=== PATIENT | female | born 1990 | race Caucasian/White ===

== ENCOUNTER 2017-01-16 17:59 | Emergency (ER) | payer OTHER ==
[~2017-01-16] VITALS: Ht 160 cm; Wt 71.0 kg
[~2017-01-16 17:59] MED LIST: TYLOTC500 PO; VNTHFA/IN INH
[2017-01-16 18:17] VITALS: BP 124/76; PULSE 102; TEMP 36.9; O2SAT 99; Ht 160 cm; Wt 71.0 kg
[2017-01-16] MEDS ORDERED: PENI-82 PO (18:36)
[2017-01-16] MEDS ORDERED: HYDR-5688 PO (18:36)
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
== END 2017-01-16 18:45 | disposition home or self-care (01) ==
LOC: C.EDB 18:01 → C.EDD 18:45
DX: K08.89 Other specified disorders of teeth and supporting structures (principal); J45.909 Unspecified asthma, uncomplicated; F17.200 Nicotine dependence, unspecified, uncomplicated; Z90.710 Acquired absence of both cervix and uterus

== ENCOUNTER 2019-04-07 22:49 | Inpatient (IN) ==
--- OUTSIDE RECORDS SUMMARY | 2019-04-07 22:51 | External Medical Summary | Continuity of Care Document ---
:1990 Author Name Corby Brenner Address Unavailable Unavailable , Care Team Providers Name Role Phone [email or web address] M.[email or web address]. Unavailable Unavailable Problems Active medical history not documented Allergies and Adverse Reactions Darvocet-N 100 TABS (Allergy) Reaction: Nausea, Vomiting Ibuprofen TABS (Allergy) Reaction: Nause a, Rash Morphine Derivatives (Allergy) Reaction: Hives Medications Medications not documented Procedures Procedures not documented Immunizations Tenivac 5-2 LFU Intramuscular Injectable On: 16-Nov-2003 HPV (Gardasil) On: 26-Feb-2007 Plan of Treatment Planned Observations Planned Goals not documented Results No Known Results Results not documented Encounters Appointment; Christel Wolfe DO 14-Mar-2018 14:20 Encounter Diagnosis: Problem not documented
[2019-04-07 23:44] LABS: Base Excess Cord Arterial Bld -4.2 mEq/L (-9-1.8); CO2 Cord Arterial Blood 57 mmHg (39.1-73.5); HCO3 Cord Arterial Blood 24 mmol/L (19.7-28.5); PO2 Cord Arterial Blood 16.5 % (4.1-31.7); pH Cord Arterial Blood 7.25 (7.1-7.38)
[2019-04-07 23:49] LABS: Base Excess Cord Venous Blood -3.4 mEq/L (-7.7-1.9); Cord Venous Blood HCO3 22 mmol/L (18.4-26.8); Cord Venous Blood PCO2 42 mmHg (30.4-57.2); Cord Venous Blood PO2 19 mmHg (14.1-43.3); Cord Venous Blood pH 7.34 (7.20-7.44)
[2019-04-07 23:50] LABS: O2 Saturation Cord Venous Bld < 60.0 % (<68)
[2019-04-07] MEDS ORDERED: SUPERCREAM 0.870% 15 GM JAR EXT PRN (23:52)
[2019-04-07] MEDS ORDERED: HYDROCORTISONE ACETATE 25 MG SUPP PR PRN (23:52)
[2019-04-07] MEDS ORDERED: DIPHTHERIA/TETANUS/PERTUSSIS 0.5 ML SYR/VIAL IM ONE (23:52)
[2019-04-07] MEDS ORDERED: OXYTOCIN 10 UNITS/ML VIAL IM ONE (23:52)
[2019-04-07] MEDS ORDERED: BENZOCAINE 20% AER SPR 82.5 GM CAN EXT PRN (23:52)
[2019-04-07] MEDS ORDERED: ACETAMINOPHEN 325 MG TAB ONE (23:53)
[2019-04-08] MEDS: ACETAMINOPHEN 325 MG TAB PO PRN ×2 (00:12→09:05)
[2019-04-08 00:20] LABS: Hemoglobin 12.2 g/dL (12.0-16.0); Mean Corpuscular Volume 85.1 fL (80-100); Mean Platelet Volume 11.3 fL (7.4-10.4); Platelet Count 277 K/uL (130-400); RDW Coefficient of Variation 13.9 % (11.5-14.5); RDW Standard Deviation 42.7 fL (36.4-46.3); Red Blood Count 4.35 M/uL (4.2-5.4)
--- NOTE | 2019-04-08 00:39 | History and Physical Report ---
DATE OF ADMISSION: 04/07/2019 ADMITTING DIAGNOSES: 1. Apparent term in active labor. 2. No care. ADMISSION HISTORY: The patient is a 28-year-old 3, para 1, probable term in active labor, who presents to labor and delivery. The patient states that her contractions began earlier in the evening and increased in intensity. The patient has had no care for this . She found out last July that she was . The patient was not seen by obstetrics nor did she seek any care during this . The patient's other term was in 2012. Apparently that baby was given up for adoption. The patient from her medical records has a history of opioid dependence and had been on Subutex in the past. She also has a history of reactive airways disease which she periodically uses an inhaler for. PAST MEDICAL HISTORY: OBSTETRICS AND GYNECOLOGY: As above. MEDICAL: As above. SURGICAL: History of cholecystectomy. ALLERGIES: CODEINE, IBUPROFEN, NALOXONE AND PROPOXYPHENE. SOCIAL HISTORY: Positive for smoking. FAMILY HISTORY: Noncontributory. REVIEW OF SYSTEMS: As per HPI. ADMISSION PHYSICAL EXAMINATION: GENERAL: Shows a gravid female in active labor. VITAL SIGNS: Blood pressure 126/82. HEENT: Shows poor dentition. NECK: Supple. ABDOMEN: Gravid, vertex. Positive palpable contractions, estimated weight of 6-1/2 pounds. PELVIC: Shows the cervix to be fully dilated with bulging membranes. EXTREMITIES: Shows no deep calf tenderness. IMPRESSION: A 28-year-old 3, para 1, apparently at term in active labor. PLAN: Delivery is imminent for the patient. Pediatrics has been notified. Anticipate vaginal delivery.
--- NOTE | 2019-04-08 00:43 | Delivery Summary ---
DATE OF OPERATION: 04/07/2019 FINDINGS: Viable male with Apgars of 8 and 9. Baby delivered over a midline second-degree laceration. Cord gases, cord blood samples obtained. Placenta delivered spontaneously. Laceration repaired with 4-0 Vicryl under local anesthesia in a routine fashion. Estimated blood loss 300 mL. LABOR NOTE: The patient is a 28-year-old 3, para 1, unknown EDC, who presented to labor and delivery in active labor. The patient states that she found out in July that she was . The patient had no care for this . The patient's previous term was in 2012. The baby was given up for adoption. On admission, the patient was found to be fully dilated with bulging membranes. She had artificial rupture of membranes for light meconium. Over the next 2 contractions, she delivered over a midline second-degree laceration. Cord was clamped and cut. Cord gases, cord blood samples were obtained. Placenta was delivered spontaneously and sent for pathological evaluation. Inspection of the perineum showed a midline second-degree laceration. This was repaired with 4-0 Vicryl after receiving local anesthetic. Estimated blood loss was 300 mL. Sponge and needle count was correct. I attest to the content of the Intraoperative Record and any orders documented therein. Any exception s are noted below.
[2019-04-08] MEDS ORDERED: OXYTOCIN 30 UNITS/500 ML BAG IV PRN (00:45)
[2019-04-08 01:16] LABS: Amphetamines+Metham, Urine Neg (Neg); Barbiturates, Urine Neg (Neg); Benzodiazepine, Urine Neg (Neg); Cocaine, Urine Neg (Neg); MDMA (Ecstacy), Urine Neg (Neg); Methadone, Urine Neg (Neg); Opiate, Urine Neg (Neg); Phencyclidine, Urine Neg (Neg)
[2019-04-08 02:06] LABS: Hepatitis B Surface Antibody Non-Immune
[2019-04-08 02:17] LABS: Rubella IgG Antibody Immune (Immune)
[2019-04-08] MEDS: BUPRENORPHINE HCL 8 MG SUBL SL SCH ×2 (03:03→14:48)
--- NOTE | 2019-04-08 06:40 | Obstetrical Progress Note ---
Date of Service <Andrés Peralta MD - Last Filed: 04/08/19 06:40> April 08, 2019 Assessment & Plan <Andrés Peralta MD - Last Filed: 04/08/19 06:40> (1) Vaginal delivery: Lourdes is a 28yo who presented in labor with unknown gestational age in no care. She is status post normal spontaneous vaginal delivery over a second-degree laceration. 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 career placement services counselor consult placed. - Feels well today. Hungry, hasn't eaten yet. Voiding well, ambulating well. - Pain well controlled with ibuprofen 600mg Q4H PRN + APAP. - Routine post- care - After discharge will have [address] Deluca if baby has not been placed in adoption. (2) No care in current in third trimester: Subjective <Andrés Peralta MD - Last Filed: 04/08/19 06:40> Ambulation: ambulating normally Voiding: no voiding problems Passing Gas:: Yes Diet Tolerance:: regular diet (has not eaten yet, is hungry) Lochia:: Moderate Feeding Type:: bottle feeding Current Pain Level(1-10): 3 Review of Systems Denies fever, chills, sweats Denies shortness of breath, difficulty breathing, chest pain, palpitations, chest pressure. Denies breast pain. Denies dysuria. Endorses some irritation and burning in the vaginal area. Endorses mild headache when waking up this morning, improving. Physical Exam <Andrés Peralta MD - Last Filed: 04/08/19 06:40> General: Alert, oriented. No acute distress. Cardiac: Regular rate and rhythm, no murmurs/rubs/gallops. Respiratory: Clear to auscultation anterior and posteriorly, no wheezes/rales/rhonchi. No increased work of breathing. Symmetrical chest rise. No respiratory distress. Abdomen: Soft, nontender, nondistended. Bowel sounds present. Uterus: Uterine fundus firm, palpable at umbilicus. Lower Extremities: No lower extremity edema or swelling. No deep calf pain. Peg's negative bilaterally. Results & Data <Andrés Peralta MD - Last Filed: 04/08/19 06:40> Vital Signs (Past 12 Hours) Vital Signs Temp Pulse Resp BP 04/08/19 01:31 78 125/86 04/08/19 01:14 71 126/75 04/08/19 00:55 36.4 C L 18 04/08/19 00:11 67 139/89 04/07/19 23:58 68 128/84 04/07/19 23:41 75 132/72 04/07/19 23:25 36.4 C L 81 22 125/79 04/07/19 22:53 81 125/79 <Oliverio Deluca Jr, MD, FACOG - Last Filed: 04/08/19 07:35> Co-Signing Physician Notes Resident Physician Supervision Note: I was present with Dr. Peralta during the history and exam. I discussed the case with the resident and agree with the findings and plan as documented in the note. Any exceptions or clarifications are listed here: Old records from the ER with previous h/o Hep C, obviously untreated. Will attempt to arrange Hepatology consult. Documented By: Oliverio Deluca Jr, MD, FACOG Resident Activity Tracking <Andrés Peralta MD - Last Filed: 04/08/19 06:40> Resident Involvement: Resident Care Provided Care Provided: Adult Hospital Medicine
[2019-04-08 08:35] LABS: Alanine Aminotransferase 25 U/L (12-78); Alkaline Phosphatase 262 U/L (45-117); Aspartate Aminotransferase 17 U/L (15-37); Bilirubin Direct < 0.1 mg/dl (0-0.2); Bilirubin,Total 0.2 mg/dl (0.2-1); Total Protein 5.8 gm/dl (6.4-8.2)
[2019-04-08] MEDS ORDERED: DOCUSATE SODIUM 100 MG CAP PO SCH (09:00)
[2019-04-08] MEDS ORDERED: FERROUS SULFATE 325 MG TAB PO SCH (09:00)
[2019-04-08] MEDS ORDERED: PRENATAL VITAMIN 1 TAB PO SCH (09:00)
[2019-04-08] MEDS ORDERED: BISACODYL 5 MG TABEC PO SCH (20:00)
== END 2019-04-08 17:34 | disposition left against medical advice (07) | DRG 806 ==
LOC: OPB 22:49 → 4S1 22:50 → 4S2 04-08 03:17